=== PATIENT | female | born 1960 | race Caucasian/White ===

== ENCOUNTER 2020-08-11 19:49 | Emergency (ER) | payer OTHER, SELFPAY ==
--- NOTE | ~2020-08-11 | XR_ITS ---
EXAMINATION: XR chest 1V portable 08/11/2020 20:54 INDICATION: Dyspnea. Fever. PROCEDURE: AP portable chest COMPARISON: No prior studies for comparison. FINDINGS: The lungs are clear. The cardiomediastinal silhouette is within normal limits. There are no pleural effusions. There is no pneumothorax suspected. IMPRESSION: 1: NO ACUTE CARDIOPULMONARY DISEASE. Reviewed, dictated and finalized at location A.
--- NOTE | 2020-08-11 20:16 | ED.SOB ---
HPI - SOB/Dyspnea General Chief Complaint: Shortness of Breath/Dyspnea Stated Complaint: diarrhea, SOB,fever Time Seen by Provider: 08/11/20 19:50 Source: patient Mode of arrival: ambulatory Limitations: no limitations History of Present Illness HPI Narrative: 59-year-old woman comes in today complaining of 5 days of fatigue with subsequent diarrhea, fevers, headache, weakness and low abdominal pain. She states she also feels mildly short of breath. She denies vomiting, dysuria, sick contacts, recent travel and recent antibiotics. She has had the influenza and COVID vaccines. She denies cough, sore throat and cold symptoms. MD elicited complaint: shortness of breath Onset (ago): day(s) (5) Timing: constant Severity: moderate Exacerbating factors: nothing Relieving factors: nothing Associated symptoms: fever Related Data Home oxygen amount: none Home Medications Medication Instructions Recorded Confirmed hydrochlorothiazide 50 mg PO DAILY 08/11/20 08/11/20 hydroxychloroquine [Plaquenil] 200 mg PO BID 08/11/20 08/11/20 sulfasalazine 500 mg PO QID 08/11/20 08/11/20 Allergies Allergy/AdvReac Type Severity Reaction Status Date / Time No Known Drug Allergies Allergy Unknown Unknown Verified 08/11/20 21:09 Review of Systems Review of Systems: All systems reviewed & are unremarkable except as noted in HPI and below Constitutional: Constitutional: Denies chills and Reports fever(s) Eyes: Eyes: Denies change in vision and Denies photophobia ENT: Denies nasal congestion and Denies sore throat Cardiovascular: Cardiovascular: Denies chest pain and Denies radiating jaw, neck or arm pain Respiratory: Respiratory: Denies cough and Reports dyspnea Gastrointestinal: Gastrointestinal: Reports abdominal pain, Reports diarrhea, Reports nausea and Denies vomiting Genitourinary: Genitourinary: Denies nocturia and Denies dysuria Musculoskeletal: Musculoskeletal: Denies back pain, Denies arthralgias and Denies joint swelling Integumentary/Breasts: Skin/Breast: Denies pruritus, Denies erythema and Denies rash Neurologic: Denies vertigo, Denies dizziness and Denies syncope Hematologic/Lymphatic: Hematologic/Lymphatic: Denies easy bleeding and Denies easy bruising PMF Past Medical History Medical History (Updated 08/11/20 @ 23:33 by José Manuel Escoto MD) Hypertension Psoriatic arthritis Social History Social History Smoking status: Never smoker Substance use: never Living arrangements: with family Additional occupation/education comments: nurse Gender identity (if verbalized by the patient): Female Exam Const: General: alert Orientation/consciousness: patient oriented x3 Other: [id number] acute distress. HENMT: Head: normal to inspection Mouth: Yes moist mucous membranes Throat: posterior oropharynx normal Eyes: Conjunctivae: conjunctivae normal Pupils: Equal, round and reactive pupils present EOM: EOMs intact bilaterally Neck: Neck: normal visual inspection and no lymphadenopathy Resp: Effort & Inspection: normal respiratory effort and not labored Auscultation: clear to auscultation bilaterally, no rales, no rhonchi and no wheezes Cardio: Rate: regular rate Rhythm: regular rhythm Heart sounds: no murmurs GI: GI Palp: Yes Soft to palpation and Yes Tenderness to palpation present (GI) ( Mild right upper quadrant) Auscultation: normal bowel sounds Skin: General skin exam: normal color, no jaundice and no pallor Rashes: no rashes Neuro: General: patient oriented x3, moves all extremities, no focal motor deficits and CN's II-XI intact bilaterally Speech: normal speech Gait exam (Neuro): Normal gait present Extrem: General: normal to inspection and no clubbing, cyanosis or edema Psych: Mental Status: mental status grossly normal Affect: normal affect Attitude: cooperative Thought content: Yes Normal thought content presen
[2020-08-11] MEDS: SODIUM CHLORIDE 0.9% IV 1,000 ML 999 ML IV CONT (20:40)
[2020-08-11] MEDS: PANTOPRAZOLE SODIUM IV 40 MG VIAL IV PUSH (20:40)
[2020-08-11 20:59] VITALS: BP 161/95; PULSE 104; RESP 20; TEMP 37.1; O2SAT 95
[2020-08-11 21:37] LABS: Hematocrit 40.5 % (35.0-49.0); Hemoglobin 13.2 g/dL (12.0-15.0); Mean Corpuscular HGB Conc 32.6 g/dL (32.0-36.0); Mean Corpuscular Hemoglobin 28.8 pg (27.0-31.0); Mean Corpuscular Volume 88.2 fL (78.0-102.0); Mean Platelet Volume 9.8 fl (9.2-11.8); Platelet Count Result 232 K/mm3 (150-420); Red Blood Count 4.59 M/mm3 (4.20-5.40); Red Cell Distribution Width 14.6 % (11.6-14.4); White Blood Count 4.2 K/mm3 (4.8-10.8)
[2020-08-11 21:40] LABS: Add Urine Microscopic? YES; Appearance Urine Clear (Clear); Bilirubin Urine Negative (Negative); Blood Urine Negative (Negative); Color Urine Yellow (Yellow); Glucose Urine UA Negative (Negative); Ketones Urine 1+ (Negative); Leukocyte Esterase Ur Negative (Negative); Nitrate Urine Negative (Negative); Protein Urine Negative (Negative); Specific Grav Ur >= 1.030 (1.010-1.020); Urobilinogen Urine 0.2 mg/dL (0.2-1.0); pH Urine 5.5 (5.0-8.0)
[2020-08-11 21:45] LABS: Alanine Aminotransferase 34 U/L (14-59); Alkaline Phosphatase 69 U/L (46-116); Anion Gap 16 mmol/L (8-16); Aspartate Amino Transferase 15 U/L (15-37); Bilirubin,Total 0.4 mg/dL (0.00-1.00); Blood Urea Nitrogen 15 mg/dL (7-18); Calcium 8.1 mg/dL (8.5-10.1); Carbon Dioxide 24 mmol/L (21-32); Chloride 101 mmol/L (98-108); Estimated CRCL calculation 71 ml/min; Estimated Glomerular Filt Rate > 60; Glucose 105 mg/dL (70-99); Lipase 39 U/L (73-393); Osmolality Calculated 292 mOsm/kg (285-295); Potassium 3.1 mmol/L (3.5-5.1); Sodium 141 mmol/L (136-145); Total Protein 6.4 g/dL (6.4-8.2)
[2020-08-11 21:50] LABS: Bacteria Urine None seen /hpf; RBC Urine 0-2 /hpf (0-2); Squamous Epithelial Cell Urine None seen /hpf (Few); WBC Urine 0-3 /hpf (0-3)
[2020-08-11 22:12] LABS: Band Neutrophils Percent 0 % (0-6); Basophils Absolute Manual 0.04 K/mm3 (0-0.1); Basophils Percent Manual 1 % (0-1); Eosinophils Percent Manual 0 % (1-6); Influenza Control Valid (Valid); Lymphocytes Absolute Manual 0.79 K/mm3 (1.1-4.5); Lymphocytes Percent Manual 19 % (18-44); Monocytes Absolute Manual 0.88 K/mm3 (0.1-0.90); Monocytes Percent Manual 21 % (3-9); Neutrophils Absolute Manual 2.47 K/mm3 (1.7-7.2); Neutrophils Percent Manual 59 % (46-73)
[2020-08-11 22:13] LABS: Platelet Estimate Adequate (Adequate)
[2020-08-11] MEDS: POTASSIUM CHLORIDE 20 MEQ TABLET 40 MEQ PO (22:15)
[2020-08-11 22:20] LABS: SARS-CoV-2 RNA PCR Negative (Negative)
[2020-08-11 23:05] VITALS: BP 130/88; PULSE 88; RESP 18
[2020-08-11 23:28] VITALS: BP 142/78; PULSE 90; RESP 18; TEMP 36.3; O2SAT 98
== END 2020-08-11 23:41 | disposition home or self-care (01) ==
PROVIDERS: Emergency Provider Emergency Medicine; PCP Family Medicine
DX: K52.9 Noninfective gastroenteritis and colitis, unspecified (principal); E87.6 Hypokalemia; Z20.822 Contact with and (suspected) exposure to COVID-19
CPT/HCPCS: 36415; 71045; 80053; 81001; 83605; 83690; 85025; 87804; 96361; 96374; 99283; 99284; A9270; C9113; C9803; J7030; U0003; U0005